=== PATIENT | male | born 1945 | race Caucasian/White ===

== ENCOUNTER 2022-09-04 13:49 | Outpatient (REF) | payer MEDICARE, SELFPAY ==
[2022-09-04 15:36] LABS: Blood Urea Nitrogen 17 mg/dL (9-16); Estimated Glomerular Filt Rate > 60
== END 2022-09-04 13:50 | disposition home or self-care (01) ==
LOC: HO.LAB 13:49
PROVIDERS: PCP Student in an Organized Health Care Education/Training Program; Visit Provider Psychiatry & Neurology Neurology
DX: I63.40 Cerebral infarction due to embolism of unspecified cerebral artery (principal); I65.29 Occlusion and stenosis of unspecified carotid artery
CPT/HCPCS: 36415; 82565; 84520

== ENCOUNTER 2023-04-17 15:33 | Outpatient (REF) | payer MEDICARE, SELFPAY ==
--- NOTE | ~2023-04-17 | US_ITS ---
EXAMINATION: US EXTRACRANIAL CAROTID DUPLEX, BILATERAL CLINICAL INFORMATION: CVA COMPARISON: None available. TECHNIQUE: Real-time ultrasound and Doppler techniques (integrating B-mode 2-D vascular images, Doppler spectral analysis and color-flow Doppler imaging) were utilized to interrogate the extracranial carotid arteries, the vertebral arteries and proximal subclavian arteries bilaterally. The degree of stenosis is determined by criteria similar to NASCET. FINDINGS: Right Side: 1. There is mild atherosclerotic plaque seen in the bifurcation/proximal ICA region. 2. The common carotid artery PSV proximally is 72 cm/s and distally 77 cm/s. 3. The proximal internal carotid artery velocities are 57 cm/s systolic and 23 cm/s diastolic. 4. The proximal external carotid artery PSV is 131 cm/s. 5. The vertebral artery shows antegrade flow. 6. The subclavian artery waveforms are normal. Left Side: 1. There is mild atherosclerotic plaque seen in the bifurcation/proximal ICA region. 2. The common carotid artery PSV proximally is 84 cm/s and distally 76 cm/s. 3. The proximal internal carotid artery velocities are 80 cm/s systolic and 37 cm/s diastolic. 4. The proximal external carotid artery PSV is 104 cm/s. 5. The vertebral artery shows antegrade flow. 6. The subclavian artery waveforms are normal. US/US carotid duplex BI IMPRESSION: 1. RIGHT: Minimal, non-hemodynamically significant stenosis of the proximal right internal carotid artery corresponding to a 0-49% stenosis by velocity criteria. 2. LEFT: Minimal, non-hemodynamically significant stenosis of the proximal left internal carotid artery corresponding to a 0-49% stenosis by velocity criteria.
== END 2023-04-17 15:34 | disposition home or self-care (01) ==
LOC: HO.US 15:33
PROVIDERS: PCP Student in an Organized Health Care Education/Training Program; Visit Provider Psychiatry & Neurology Neurology
DX: I63.40 Cerebral infarction due to embolism of unspecified cerebral artery (principal); I65.23 Occlusion and stenosis of bilateral carotid arteries
CPT/HCPCS: 93880

== ENCOUNTER 2024-07-26 12:49 | Outpatient (AMB) | payer MEDICARE, SELFPAY ==
--- NOTE | 2024-07-26 13:20 | A.OFFPC_ITS ---
Vital Signs 07/26/24 13:24 Height 5 ft 3.39 in Weight 173 lb 6 oz BMI 30.3 BP 126/72 Blood Pressure Location Rt brachial Position Sitting Respiration 14 Pulse 57 Pulse Source Pulse Oximeter Pulse Oximetry (%) 97 Oxygen Delivery Method Room Air Intake Visit Reasons: SANITARY ENGINEER/PE requested Allergies No Known Allergies Allergy (Verified 07/26/24 13:21) Tobacco use date assessed: 07/26/24 Fall risk assessment: No Falls in past year Last assessed Fall Risk: 07/26/24 Dental Screening Dental Screen Date: 07/26/24 Did you have a dental visit in the last 12 months?: Yes Did you have a dental problem in the last 6 months where you did not have access to dental care?: No Was dental information given to patient?: Patient has dentist HPI HPI Comments History of Present Illness Details The patient is a 79 year old male with a past medical history of CVA c left hemiparesis, hypertension, GERD/PUD, COPD pulm nodule, history of kidney stones presenting to [facility] care. Transferring from [facility] CV: On plavix, atorvastatin. Some memory loss. Taking herbal supplement. MSK: History of T12 wedge fracture. 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 Carotid thrombosis-right. Patient started on xarelto Colonoscopy noted due 2020. cologuard ordered today ROS CONSTITUTIONAL: Denies weight loss, fever and chills. HEENT: Denies changes in vision and hearing. RESPIRATORY: Denies SOB and cough. CV: Denies palpitations and CP GI: Denies abdominal pain, nausea, vomiting and diarrhea. : Denies dysuria and urinary frequency. MSK: Denies new myalgia and joint pain. SKIN: Denies rash and pruritus. NEUROLOGICAL: Denies headache PSYCHIATRIC: Denies recent changes in mood. PHYSICAL EXAM: GENERAL: Alert and oriented x 3. NAD EYES: EOMI. Anicteric. HENT: Moist mucous membranes. No scleral icterus. No cervical lymphadenopathy. LUNGS: Clear to auscultation bilaterally. CARDIOVASCULAR: Regular rate and rhythm. No murmur. No JVD. ABDOMEN: Soft, non-tender +bs EXTREMITIES: No edema. Non-tender. SKIN: No rashes or lesions. Warm. NEUROLOGIC: No focal neurological deficits. CN II-XII grossly intact PSYCHIATRIC: Cooperative. Appropriate mood and affect [facility] Surgical History H/O colonoscopy Hx laparoscopic cholecystectomy Family History Mother Diabetes Father Prostate cancer Stroke HTN (hypertension) Crohn disease Alcoholism Son Bicuspid aortic valve Other Substance abuse Social History Housing: House Patient Tobacco Use Status: Former Tobacco user Tobacco use type: Cigarette (10 cigarette a day) and Cigar (3-4 daily) Cigarette Packs Per Day: 0.5 Years Smoked: 60 e-Cigarette/Vaping Use: Never Used Second Hand Smoke Exposure: Yes (past) service: No Current occupational status: retired Cognitive needs: No Hearing needs: Yes (hearing aids both ears) Vision needs: Yes (reading glasses) Questionnaire PHQ-9 Over the last 2 weeks, how often have you been bothered by any of the following problems? 1. Little interest or pleasure in doing things: not at all 2. Feeling down, depressed, or hopeless: not at all 3. Trouble falling or staying asleep, or sleeping too much: not at all 4. Feeling tired or having little energy: several days 5. Poor appetite or overeating: not at all 6. Feeling bad about yourself - or that you are a failure or have let yourself or your family down: not at all 7. Trouble concentrating on things, such as reading the newspaper or watching television: not at all 8. Moving or speaking so slowly that other people could have noticed. Or the opposite - being so fidgety or restless that you have been moving around a lot more than usual: not at all 9. Thoughts that you would be better off or of hurting yourself in some way: not at all Total score: 1 Depression Screening Interpretation: Negative Depression Screening Done: Yes 64117 - PHQ-9 Billing: Yes Source: Developed by Drs. Jose Ramon Ramirez, Samra Mckeon, Daniel Tang and colleagues, with an educational mariana from [employer]. Thrive Questionnaire Date Thrive assessed: 07/26/24 I am a: Patient What is your living situation today?: I have a steady place to live Within the past 12 months, did the food you bought not last and you didn't have the money to get more?: Never true Within the past 12 months, did you worry whether your food would run out before you got money to buy more?: Never true Do you have trouble paying for medicines?: No Do you have trouble getting transportation to medical appointments?: No Do you have trouble paying your heating and electricity bill?: No Do you have trouble taking care of your child, family member or friend?: No Do you have trouble with day-to-day activities such as bathing, preparing meals, shopping, managing finances, etc.?: No Are you currently unemployed and looking for a job?: No Are you interested in more education?: No Please select the resources that you would like help with: None Currently or been in a relationship where the following occur: No concerns reported THRIVE Score: 0 AUDIT C Alcohol Use Questionnaire (AUDIT-C) 1. How often do you have a drink containing alcohol?: Never Total Score: 0 CHIKIS-7 AMB Questionnaire CHIKIS-7 Date CHIKIS - 7 assessed: 07/26/24 Feeling nervous, anxious, or on edge: 0 = Not at all Not being able to stop or control worryin = Several days Worrying too much about different things: 0 = Not at all Trouble relaxin = Not at all Being so restless that it is hard to sit still: 0 = Not at all Becoming easily annoyed or irritable: 1 = Several days Feeling afraid as if something awful might happen: 0 = Not at all Total CHIKIS-7 score (0-4 normal; 5-9 mild; 10-14 moderate; 15-21 severe): 2 Source: Developed by Drs. Jose Ramon Ramirez, Samra Mckeon, Daniel Tang and colleagues, with an educational mariana from [employer]. CHIKIS-7 Assessment Billing CHIKIS-7 Assessment Tool: CHIKIS-7 Assessment 29925 Physical exam (Primary Care) Vital Signs: Last Vital Signs Pulse 57 07/26/24 13:24 Resp 14 07/26/24 13:24 BP 126/72 07/26/24 13:24 Pulse Ox 97 07/26/24 13:24 Oxygen Delivery Method Room Air 07/26/24 13:24 BMI result Body Mass Index 30.3 Tobacco/Smoking Status: Tobacco use Status Tobacco use date assessed 07/26/24 07/26/24 13:26 Patient Tobacco Use Status Former Tobacco user 07/26/24 13:26 Tobacco use type Cigarette (10 cigarette a 07/26/24 13:26 day),Cigar (3-4 daily) e-Cigarette/Vaping Use Never Used 07/26/24 13:26 PHQ-9: PHQ-9 Score PHQ-9: Total score 1 07/26/24 13:46 Depression Screening Interpretation: Negative Thrive Assessment: Date of Thrive Assessment Date Thrive assessed 07/26/24 07/26/24 13:46 Currently or been in a relationship where the following occur: No concerns reported Coding Level of Care Code New Pt Level 4 (98939) Complex EM visit Add On G2211 Diagnoses Encounter to establish care Z76.89 History of CVA (cerebrovascular accident) Z86.73 Additional Codes CHIKIS-7 Assessment Billing - CHIKIS-7 Assessment Tool: CHIKIS-7 Assessment 52008 ([id number]) PHQ-9 - 01858 - PHQ-9 Billing: Yes ([id number]) Assessment & Plan Assessment & Plan (1) Encounter to establish care: Code(s): Z76.89 - Persons encountering health services in other specified circumstances Category: Medical (2) History of CVA (cerebrovascular accident): Code(s): Z86.73 - Personal history of transient ischemic attack (TIA), and cerebral infarction without residual deficits Category: Medical Plan 79 yo to establish care Past medical, surgical, social and family history reviewed Medications reconciled cologuard ordered Orders: Orders Complete Blood Count Auto Diff Today K21.9 - Gastro-esophageal reflux disease without esophagitis, Z12.11 - Encounter for screening for malignant neoplasm of colon, Z86.73 - Personal history of transient ischemic attack (TIA), and cerebral infarction without residual deficits Comprehensive Met. Panel Today K21.9 - Gastro-esophageal reflux disease without esophagitis, Z12.11 - Encounter for screening for malignant neoplasm of colon, Z86.73 - Personal history of transient ischemic attack (TIA), and cerebral infarction without residual deficits Lipid Panel Today K21.9 - Gastro-esophageal reflux disease without esophagitis, Z12.11 - Encounter for screening for malignant neoplasm of colon, Z86.73 - Pe rsonal history of transient ischemic attack (TIA), and cerebral infarction without residual deficits Prostate Specific Antigen Today K21.9 - Gastro-esophageal reflux disease without esophagitis, Z12.11 - Encounter for screening for malignant neoplasm of colon, Z86.73 - Personal history of transient ischemic attack (TIA), and cerebral infarction without residual deficits Referrals Cologuard Test Z12.11 - Encounter for screening for malignant neoplasm of colon, Z12.12 - Encounter for screening for malignant neoplasm of rectum Medications: New atorvastatin 80 mg PO DAILY 90 tabs 3RF
[2024-07-26 13:24] VITALS: BP 126/72; PULSE 57; RESP 14; O2SAT 97; BMI 30.3
--- OUTSIDE RECORDS SUMMARY | 2024-07-26 15:30 | XMS_ITS | Clinical Summary ---
Author Organization [facility] ity Address [address] [place] [address] Care Team Providers Care Arts [employer] Dean Name Role Phone Yanni Vanegas MD Primary Care Provider [phone] Allergies No known active allergies Medications CALCIUM CARBONATE-VITAM IN D3 ORAL Take by mouth. Acti ve multivitamin (MULTIPLE VITAMINS ORAL) Take by mouth. Active OMEGA-3 FATTY ACIDS-FISH OIL ORAL Take by mouth. Activ e psyllium (METAMUCIL) 3.4 gram packet Take 1 packet by mouth 2 (two) times a day. Active zinc sulfate (ZINC-15 ORAL) Take by mouth. Strength unknown Active albuterol HFA (PROAIR HFA ; PROVENTIL HFA ; VENTOLIN HFA) 90 mcg/actuation inhaler Inhale 2 puffs by mouth every 6 (six) hours if needed (Cough, Wheezing or Shortness of Breath). for up to 30 days. 4 Active atorvastatin (LIPITOR) 80 mg tablet Take 1 tablet (80 mg total) by mouth at bedtime. 4 Active clopidogreL (PLAVIX) 75 mg tablet Take 1 tablet (75 mg total) by mouth 1 (one) time each day. FOR 30 DAYS 3 Active famotidine (PEPCID) 40 mg tablet Take 1 tablet (40 mg total) by mouth 1 (one) time each day. 4 Active fluticasone (VERAMYST) 27.5 mcg/actuation nasal spray Administer 2 sprays into affected nostril(s) if needed. Active timolol (TIMOPTIC) 0.5 % ophthalmic solution 3 Active Active Problems Problem Noted Date Diagnosed Date Carotid thrombosis, right 07/23/2022 COVID-19 07/23/2022 GERD (gastroesophageal reflux disease) 3 HTN (hypertension) 07/23/2022 Left hemiparesis 07/23/2022 Left homonymous hemianopsia 07/23/2022 CVA (cerebral vascular accident) 05/26/2022 Overview (02/19/2024): Acute severe on 05/17/2022, right MCA stroke, left homonymous hemianopsia, left hemiparesis, carotid thrombosis right started patient on anticoagulation. Last Assessment & Plan: As I noted this patient did present with left-sided symptoms but was found to have multiple infarcts on the right frontal and parietal lobes. They did find a thrombus in the right internal carotid artery. It is not clear if this thrombus may have been from a ruptured plaque or not. Not clear if he may have paroxysmal atrial fibrillation causes. Was not clear if there is something within the left ventricle that can lead to this. Other possibilities to be if he had a plaque from the order although it is a noted look like a clot therefore do not think this is the case. I am can schedule for an echocardiogram. 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 I did tell him though if he ever had any exertional symptoms, I described to call. I did tell him if he had discomfort in his chest lasting for 15 to 20 minutes call 911. ED (erectile dysfunction) 10/28/2018 Warts 10/28/2018 Wedge fracture of thoracic vertebra 10/28/2018 Overview (02/19/2024): T 12. Moderate Cigar smoker 10/18/2018 Glaucoma 10/18/2018 Overview (02/19/2024): Dr Burger Pulmonary nodule 10/18/2018 Overview (02/19/2024): On xray - will need ct chest Elevated bilirubin 04/11/2016 Encounters Date Type Department Care Team Description 06/01/2024 Telephone Lung Screening Program - [address] [place] [address] Milvia Mckeon MA from Last 3 Months Immunizations Name Administration Dates Next Due Moderna SARS-CoV-2 COVID-19, mRNA, LNP-S, preservative free 04/04/2021,08/18/2020,07/21/2020 Pneumococcal conjugate 20 va lent (Prevnar 20, PCV 20) 2mo and older 04/06/2023 Td Tetanus diptheria (Tdvax) 7yo and older 04/06 Zoster Live 05/23/2023 Zoster recombinant (Shingrix ) 19yo and older 05/23/2023,02/11/2023 Surgical History Surgery Date Site/Laterality Comments CHOLECYSTECTOMY PROCEDURE: HISTORICAL CHOLECYSTECTOMY OTHER SURGICAL HISTORY PROCEDURE: ---- OTHER ----; COMMENT: exploratory laprotomy for PUD in 2002 and 2018 COLONOSCOPY 12/19/2004 PROCEDURE: HISTORICAL COLONOSCOPY; COMMENT: Dr Louise. Negative. 10 year repeat OTHER SURGICAL HISTORY PROCEDURE: CO GASTRIC RSTCV W/PRTL GASTRECTOMY 50-100 CM CHOLECYSTECTOMY PROCEDURE: CO LAPAROSCOPY SURG CHOLECYSTECTOMY Medical History Medical History Date Comments Glaucoma 10/18/2018 DX:Glaucoma; COM MENT: Dr Burger Cigar smoker 10/18/2018 DX:Cigar smoker Pulmonary nodule 10/18/2018 DX:Pulmonary no dule; COMMENT: On xray - will need ct chest Wedge fracture of thoracic v ertebra (CMS/HCC) 10/28/2018 DX:Wedge fracture of thoraci c vertebra (HCC); COMMENT: T 12. Moderate ED (erectile dysfunction) 10/28/2018 DX:ED (erectile dysfunction) History of kidney stones 10/28/2018 DX:Hist ory of kidney stones Warts 10/28/2018 DX:Warts Depressive disorder DX:Depressiv e disorder HTN (hypertension) 07/23/2022 DX:HTN (hyper tension) GERD (gastroesophageal reflu x disease) 07/23/2022 DX:GERD (gastroesophageal re flux disease) History of gastrectomy DX:Histor y of gastrectomy Family History Medical History Relation Name Comments Crohn's disease Daughter Hypertension Father stroke, liver a nd prostate cancer Other cancer Father Prostate cancer Father Stroke Father Diabetes Mother goiter Other: Heart Problem Son Bicuspi d Aortic valve, dissected aorta Relation Name Status Comments Daughter Alive Father Mother Son Alive Social History Tobacco Use Types Packs/Day Years Used Date Smoking Tobacco: Former Cigarettes Q uit: 10/02/2018 Smokeless Tobacco: Never Alcohol Use Standard Drinks/Week Comments Yes 0 (1 standard drink = 0.6 oz pur e alcohol) Sex and Gender Information Value Date Recorded Sex Assigned at Not on file Legal Sex Male 12:21 PM EST Gender Identity Not on file Sexual Orientation Not on file Obstetrics History Last Filed Vital Signs Vital Sign Reading Time Taken Comments Blood Pressure 146/84 12/04/2023 8:24 AM EDT Sit ting L Arm Pulse 57 12/04/2023 8:24 AM EDT Temperature - - Respiratory Rate - - Oxygen Saturation - - Inhaled Oxygen Concentration - - Weight 76.2 kg (168 lb) 12/04/2023 8:24 AM EDT Height 167.6 cm (5' 6 ) 12/04/2023 8:24 AM EDT Body Mass Index 27.12 12/04/2023 8:24 AM EDT Plan of Treatment Health Maintenance Due Date Last Done Comments RSV Immunization Patients 60+ Years Old (1 - 1-dose 75+ series) 2020 Colorectal Cancer Screening: Colonoscopy 04/07/2022 10/18/2015 Depression Screening 04/07/2022 Falls Risk Assessment 04/07/2022 Hepatitis C Screening 04/07/2022 Social Influencers of Health Screening 04/07/2022 Hypertension/CHF/CAD Annual BMP Blood Test 12/04/2023 12/03/2022 COVID-19 Vaccine ( season) 2024 04/29/2022, 04/04/2021, 08/18/2020, Additional history exists Influenza Vaccine (#1) 2024 Cholesterol Screening (Lipid Panel) 06/21/2026 06/21/2021 DTaP,Tdap,and Td Vaccines (2 - Td or Tdap) 04/06/2033 04/06/2023 Pneumococcal Vaccine: 50+ Years Completed 04/06/2023 Zoster Vaccines Completed 05/23/2023, 05/05, 02/11/2023 HIB Vaccines Aged Out No longer eligi ble based on patient's age to complete this topic HPV Vaccines Aged Out No longer eligi ble based on patient's age to complete this topic Hepatitis A Vaccines Aged Out No long er eligible based on patient's age to complete this topic Hepatitis B Vaccines Aged Out No long er eligible based on patient's age to complete this topic IPV Vaccines Aged Out No longer eligi ble based on patient's age to complete this topic MMR Vaccines Aged Out No longer eligi ble based on patient's age to complete this topic Meningococcal ACWY Vaccine Aged Out N o longer eligible based on patient's age to complete this topic Meningococcal B Vacine Aged Out No lo nger eligible based on patient's age to complete this topic RSV Immunization Patients Under 20 months Aged Out No longer eligible based on patient's age to complete this topic Varicella Vaccines Aged Out No longer eligible based on patient's age to complete this topic Procedures Procedure Name Priority Date/Time Associated Diagnosis Comments ANNUAL BMP BLOOD TEST Routine 12/03/2022 LIPID PANEL Routine 06/21/2021 COLONOSCOPY Routine 10/18/2015 from Last 3 Months or Most Recently Relevant to Health Maintenance Results * Annual BMP Blood Test (12/03/2022) Pathologist [facility] Annual BMP Blood Test Abstracted Historical Provider HEALTH MAINTENANCE Final Result * (ABNORMAL) Lipid panel (06/21/2021) [facility] LDL/HDL Ratio 5(A) 0 - 4 Triglycerides 200(A) 0 - 150 mg/dL Cholesterol 161 0 - 200 mg/dL HDL 36(A) >=40 mg/dL LDL Cholesterol 85 0 - 100 mg/dL Blood Venous blood specimen / Unknown Historical Provider LAB BLOOD ORDERABLES Patricia l Result * Colonoscopy (10/18/2015) Pathologist [facility] Colonoscopy No interpretation , abstracted Anatomical Region Laterality Modality Other Historical Provider HEALTH MAINTENANCE Final Result from Last 3 Months or Most Recently Relevant to Health Maintenance Advance Directives Documents on File Type Date Recorded Patient Manager Membership Expl anation Health Care Decision (hx) 06/30/2023 AD MOLINA DIRECTIVE Health Care Decision (hx) 06/30/2023 AD MOLINA DIRECTIVE Care Teams Arts [employer] Sciences Dean Relationship Specialty Start Date End Date Yanni Vanegas MD PCP - General 10/16/23
--- OUTSIDE RECORDS SUMMARY | 2024-07-26 15:30 | XMS_ITS | Clinical Summary ---
Author Organization [facility] Address [address] [place] [address] Care Team Providers Care Software Integration Developer Name Role Phone Lukas Solomon MD Primary Care Provider [phone] Allergies No known active allergies Medications Medication Sig Dispensed Refills Start Date End Date Status latanoprost (XALATAN) 0.005 % ophthalmic solution Place 1 drop into both eyes every night at bedtime. 0 03/26/2016 Active ranitidine (ZANTAC) 150 MG tablet Take 150 mg by mouth 2 (two) times a day. 0 04/09/2016 Active aspirin EC 81 MG tablet Take 81 mg by mouth daily. 0 Active Multiple Vitamin (MULTI VITAMIN MENS) tablet Take 1 tablet by mouth daily. 0 Active psyllium (METAMUCIL) 0.52 G capsule Take 2.08 g by mouth daily. 0 Active cholecalciferol (VITAMIN D3) 1000 UNITS tablet Take 1,000 Units by mouth daily. 0 Active Zinc 50 MG TABS Take 50 mg by mouth daily. 0 Active oxyCODONE (ROXICODONE) 5 MG immediate release tablet Take 1 tablet (5 mg total) by mouth every 4 (four) hours as needed. 22 tablet 0 04/12/2016 Active Active Problems Problem Noted Date Diagnosed Date Elevated bilirubin 04/11/2016 Choledocholithiasis 04/11/2016 Resolved Problems Problem Noted Date Diagnosed Date Resolved Date Biliary colic symptom 04/11/20162015 Family History Medical History Relation Name Comments Cancer Father Liver Hypertension Father Stroke Father Diabetes Mother Relation Name Status Comments Father Mother Social History Tobacco Use Types Packs/Day Years Used Date Smoking Tobacco: Former Cigarettes Q uit: 05/04/1979 Alcohol Use Standard Drinks/Week Comments Yes 0 (1 standard drink = 0.6 oz pur e alcohol) 2 drinks per year Sex and Gender Information Value Date Recorded Sex Assigned at Not on file Gender Identity Not on file Sexual Orientation Not on file Last Filed Vital Signs Vital Sign Reading Time Taken Comments Blood Pressure 154/102 04/12/2016 1:39 PM EST Pulse 85 04/12/2016 1:39 PM EST Temperature 37.5 ??C (99.5 ??F) 04/12/2016 1:39 PM ES T Respiratory Rate 18 04/12/2016 1:39 PM EST Oxygen Saturation 93% 04/12/2016 1:39 PM EST Inhaled Oxygen Concentration - - Weight 76.7 kg (169 lb) 04/12/2016 5:29 AM EST Height 167.6 cm (5' 6 ) 04/10/2016 6:52 PM EST Body Mass Index 27.28 04/10/2016 6:52 PM EST Plan of Treatment Health Maintenance Due Date Last Done Comments Hepatitis C Screening 1945 COVID-19 Vaccine (#1) 1945 Depression Screening 1957 Preventative Health Evaluation 1963 DTap / Tdap / Td (1 - Tdap) 1964 Shingrix-Zoster Vaccine (1 of 2) 1995 Fall Risk Assessment 2010 Pneumococcal Vaccine (1 of 1 - PCV) 2010 RSV Adult > 60+ Yrs or Pregn ant (1 - 1-dose 75+ series) 2020 Influenza Vaccine (#1) 2024 Hepatitis B Vaccines Aged Out No long er eligible based on patient's age to complete this topic RSV Ped < 20 months Aged Out No longe r eligible based on patient's age to complete this topic Advance Directives For more information, please contact: [phone] Latest Code Status on File Code Status Date Activated Date Inactivated Comments Full Code 04/10/2016 6:49 PM 04/12/2016 10:40 PM Thi s code status was ascertained in the following way: discussion with patient. Care Teams Software Integration Developer Relationship Specialty Start Date End Date Lukas Solomon MD [address] [place] [id number] PCP - General Family Medicine 04/10/16
== END 2024-07-26 14:20 | disposition home or self-care (01) ==
LOC: HO.HMCFM 12:50
PROVIDERS: PCP Internal Medicine; Visit Provider Internal Medicine
DX: Z76.89 Persons encountering health services in other specified circumstances (principal); Z86.73 Personal history of transient ischemic attack (TIA), and cerebral infarction without residual deficits

== ENCOUNTER → 2024-07-26 12:49 | Outpatient (BNVA) | payer MEDICARE, SELFPAY | PROVIDERS: PCP Internal Medicine; Visit Provider Internal Medicine | DX: I69.354 Hemiplegia and hemiparesis following cerebral infarction affecting left non-dominant side (principal); I10 Essential (primary) hypertension; K21.9 Gastro-esophageal reflux disease without esophagitis; J44.9 Chronic obstructive pulmonary disease, unspecified; Z87.442 Personal history of urinary calculi; Z76.89 Persons encountering health services in other specified circumstances; Z12.5 Encounter for screening for malignant neoplasm of prostate | CPT/HCPCS: 36415; 80053; 80061; 84153; 85025; 96127; 99202 ==

== ENCOUNTER 2024-07-26 14:28 | Outpatient (REF) | payer MEDICARE, SELFPAY ==
[2024-07-26 18:05] LABS: MANUAL DIFF FLAG NO
[2024-07-26 18:28] LABS: Alanine Aminotransferase 18 U/L (0-40); Alkaline Phosphatase 103 U/L (39-117); Anion Gap 9 (12-20); Aspartate Amino Transferase 73 U/L (5-37); Basophils Percent Auto 0.2 % (0-2); Blood Urea Nitrogen 16 mg/dL (9-16); Calcium 9.5 mg/dL (8.4-10.2); Carbon Dioxide 25 mmol/L (22-29); Chloride 111 mmol/L (96-108); Cholesterol 143 mg/dL (<200); Eosinophils Absolute Auto 0.2 X10*3/uL (0.0-0.4); Eosinophils Percent Auto 1.6 % (0-4); Estimated Glomerular Filt Rate > 60; Glucose Random 79 mg/dL (60-115); HDL Cholesterol 39 mg/dL (>40); Hematocrit 46.5 % (42.0-52.0); Hemoglobin 15.5 g/dl (14.0-18.0); Imm Gran Abs Auto 0.06 X10*3/uL (0.00-0.03); Imm Gran Pct Auto 0.6 % (0.0-0.4); LDL Cholesterol Calculated 56 mg/dL (<100); Mean Corpuscular HGB Conc 33.3 g/dl (31.0-36.0); Mean Corpuscular Hemoglobin 30.5 pg (27.0-33.0); Mean Corpuscular Volume 91.5 fL (80.0-98.0); Mean Platelet Volume 10.4 fL (9.4-12.4); Monocytes Percent Auto 10.2 % (2-11); Neutrophils Absolute Auto 6.3 x10*3/uL (2.0-8.3); Neutrophils Percent Auto 66.4 % (45-73); Platelet Count 295 X10*3/uL (160-400); Potassium 4.1 mmol/L (3.3-5.1); Red Blood Count 5.08 X10*6/uL (4.60-5.80); Red Cell Distribution Width 12.6 % (11.0-16.0); Sodium 141 mmol/L (135-145); Total Protein 6.9 g/dL (6.5-8.0); Triglycerides 242 mg/dL (<150); White Blood Count 9.5 X10*3/uL (4.8-10.8)
[2024-07-26 18:49] LABS: Prostate Specific Antigen 4.07 ng/mL (<0.05-4.0)
== END 2024-07-26 14:29 | disposition home or self-care (01) ==
LOC: HO.WFDLDS 14:28
PROVIDERS: Visit Provider Internal Medicine
DX: Z13.89 Encounter for screening for other disorder (principal)
CPT/HCPCS: 36415; 80053; 80061; 84153; 85025

== ENCOUNTER 2025-04-21 08:00 | Outpatient (REF) | payer MEDICARE, SELFPAY ==
[2025-04-21 11:11] LABS: Folate 11.3 ng/mL (> or = 4.0); Vitamin B12 1011 pg/mL (200-900)
== END 2025-04-21 08:01 | disposition home or self-care (01) ==
LOC: HO.LAB 08:00
PROVIDERS: PCP Internal Medicine; Visit Provider Registered Nurse
DX: G31.84 Mild cognitive impairment of uncertain or unknown etiology (principal); Z86.73 Personal history of transient ischemic attack (TIA), and cerebral infarction without residual deficits; Z79.899 Other long term (current) drug therapy
CPT/HCPCS: 36415; 82607; 82746; 84443; 99212

== ENCOUNTER 2025-04-21 08:00 | Outpatient (AMB) | payer MEDICARE, SELFPAY ==
--- OUTSIDE RECORDS SUMMARY | 2025-04-21 08:04 | XMS_ITS | Clinical Summary ---
Author Organization [facility] Prior to 10/01/[address] [place] [address] Care Team Providers Care Maintenance Mechanic Helper Name Role Phone Lukas Solomon MD Primary Care Provider [phone] Allergies No known active allergies Medications Medication [...] 85 04/12/2016 1:39 PM EST Temperature 37.5 C (99.5 F) 04/12/2016 1:39 PM EST Respiratory Rate 18 04/12/2016 1:39 PM EST Oxygen Saturation 93% 04/12/2016 1:39 PM EST Inhaled Oxygen Concentration - - Weight 76.7 kg (169 lb) 04/12/2016 5:29 AM EST Height 167.6 cm (5' 6 ) 04/10/2016 6:52 PM EST Body Mass Index 27.28 04/10/2016 6:52 PM EST Plan of Treatment Health Maintenance Due Date Last Done Comments COVID-19 Vaccine (#1) 1945 Depression Screening 1957 Preventative Health Evaluation 1963 DTap / Tdap / Td (1 - Tdap) 1964 Shingrix-Zoster Vaccine (1 of 2) 1995 Fall Risk Assessment 2010 Pneumococcal Vaccine (1 of 1 - PCV) 2010 RSV Adult > 60+ Yrs or Pregn ant (1 - 1-dose 75+ series) 2020 Influenza Vaccine (#1) 2025 Hepatitis B Vaccines Aged Out No long er eligible based on patient's age to complete this topic RSV Ped < 20 months Aged Out No longe r eligible based on patient's age to complete this topic Advance Directives For more information, please contact: [phone] Latest Code Status on File Code Status Date Activated Date Inactivated Comments Full Code 04/10/2016 6:49 PM 04/12/2016 10:40 PM Thi s code status was ascertained in the following way: discussion with patient. Care Teams Maintenance Mechanic Helper Relationship Specialty Start Date End Date Lukas Solomon MD [address] [place] [id number] PCP - General Family Medicine 04/10/16
--- OUTSIDE RECORDS SUMMARY | 2025-04-21 08:05 | XMS_ITS | Clinical Summary ---
Author Organization [facility] ity Address [address] [place] [address] Care Team Providers Care Cheesemaker Name Role Phone Yanni Vanegas MD Primary Care Provider [phone] Allergies No known active allergies Medications CALCIUM [...] will need ct chest Elevated bilirubin 04/11/2016 Immunizations Immunization Administration Dates Next Due Moderna SARS-CoV-2 COVID-19, [...] 10 year repeat OTHER SURGICAL HISTORY PROCEDURE: IN GASTRIC RSTCV W/PRTL GASTRECTOMY 50-100 CM CHOLECYSTECTOMY PROCEDURE: IN LAPAROSCOPY SURG CHOLECYSTECTOMY Medical History Medical History Date Comments Glaucoma 10/18/2018 DX:Glaucoma; COM MENT: Dr Burger Cigar smoker 10/18/2018 DX:Cigar smoker Pulmonary nodule 10/18/2018 DX:Pulmonary no dule; COMMENT: On xray - will need ct chest Wedge fracture of thoracic v ertebra (CMS/HCC V24, CMS/HCC V28) 10/28/2018 DX:Wedge fracture of thorac ic vertebra (HCC); COMMENT: T 12. Moderate ED [...] Years Used Date Smoking Tobacco: Former Cigarettes 0 Q uit: 10/02/2018 Smokeless Tobacco: Never Alcohol [...] Due Date Last Done Comments RSV Immunization Adult Patients (1 - 1-dose 75+ series) 2020 Colorectal Cancer Screening: Colonoscopy 10/17/2020 10/18/2015 Falls Risk Assessment 04/07/2022 Social Influencers of Health Screening 04/07/2022 Hypertension/CHF/CAD Annual BMP Blood Test 12/04/2023 12/03/2022 Depression Screening 05/04/2024 COVID-19 Vaccine ( season) 2025 04/29/2022, 04/04/2021, 08/18/2020, Additional history exists Influenza Vaccine (#1) 2025 Cholesterol Screening (Lipid Panel) 06/21/2026 06/21/2021 DTaP,Tdap,and [...] age to complete this topic Meningococcal B Vaccine Aged Out No l onger eligible based on patient's age to complete [...] Results * Annual BMP Blood Test (12/03/2022) Annual BMP Blood Test Abstracted [facility] Provider HEALTH MAINTENANCE Final Result * (ABNORMAL) Lipid panel (06/21/2021) Pathologist [facility] LDL/HDL Ratio 5(A) 0 - 4 Triglycerides 200(A) 0 - 150 mg/dL Cholesterol 161 0 - 200 mg/dL HDL 36(A) >=40 mg/dL LDL Cholesterol 85 0 - 100 mg/dL Blood Venous blood specimen / Unknown Historical Provider LAB BLOOD ORDERABLES Patricia l Result * Colonoscopy (10/18/2015) Colonoscopy No interpretation , abstracted Anatomical Region Laterality Modality Other Historical Provider HEALTH MAINTENANCE Final Result from Last 3 Months or Most Recently Relevant to Health Maintenance Advance Directives Documents on File Type Date Recorded Patient Liner Man Expl anation Health Care Decision (hx) 06/30/2023 AD MOLINA DIRECTIVE Health Care Decision (hx) 06/30/2023 AD MOLINA DIRECTIVE Care Teams Cheesemaker Relationship Specialty Start Date End Date Yanni Vanegas MD [facility] - General 10/16/23
--- NOTE | 2025-04-21 08:32 | MHC.OFFVIS ---
Intake Visit Reasons: follow up Accompanied by: Spouse Allergies No Known Allergies Allergy (Verified 04/21/25 08:36) Medication List - Last Reconciled 04/21/25 by Mary Orantes CNP atorvastatin 80 mg PO DAILY clopidogrel 75 mg PO DAILY 90 days multivitamin 1 tab PO DAILY timolol maleate 0.5% drps ophthalmic (eye) HPI Comments Details: 80-year-old man with past medical history of peptic ulcer disease and hypertension who was seen in [facility] in May of 2022 with slurred speech and left-sided weakness. 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 He returns after 23 months with new concern of forgetfulness. His of 58 years (together for 62) has noticed short-term memory issues have gotten worse over the last year. He has tried multiple supplements including [employer], and honey and cinnamon, but he was sometimes forgetting to take them. He says he remembers what is important. He keeps a calendar of appointments. No new stroke-like symptoms. His handwriting never fully came back after the stroke. Sleep was okay. 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 He enjoys reading and doing crossword puzzles. [facility] Medical History (Updated 04/21/25 @ 08:50 by Mary Orantes CNP) Cerebral microvascular disease Embolic cerebral infarction Surgical History H/O colonoscopy Hx laparoscopic cholecystectomy Family History Mother Diabetes Father Prostate cancer Stroke HTN (hypertension) Crohn disease Alcoholism Son Bicuspid aortic valve Other Substance abuse Social History Housing: House Patient Tobacco Use Status: Former Tobacco user Tobacco use type: Cigarette (10 cigarette a day) and Cigar (3-4 daily) Cigarette Packs Per Day: 0.5 Years Smoked: 60 e-Cigarette/Vaping Use: Never Used Second Hand Smoke Exposure: Yes (past) service: No Current occupational status: retired Cognitive needs: No Hearing needs: Yes (hearing aids both ears) Vision needs: Yes (reading glasses) Review of Systems Const Denies chills, Denies daytime sleepiness, Denies difficulty sleeping, Denies fatigue, Denies fever(s), Denies frequent falls, Denies headache(s), Denies increased appetite, Denies poor appetite, Denies snoring, Denies weakness, Denies weight gain and Denies weight loss Eyes Denies loss of vision ENT Denies vertigo, Denies dizziness and Denies headache(s) Card Denies chest pain at rest, Denies chest pain with activity, Denies syncope, Denies leg edema and Denies palpitations Resp Denies snoring GI Denies constipation, Denies heartburn, Denies diarrhea and Denies nausea Denies urinary frequency, Denies urinary incontinence and Denies urinary urgency Musc Denies abnormal gait, Denies numbness and Denies tingling Skin/Breast Denies dry skin and Denies rash Neuro Denies abnormal gait, Denies vertigo, Denies dizziness, Denies syncope, Denies frequent falls, Denies headache(s), Denies lack of coordination, Denies loss of vision, Reports memory loss, Denies numbness, Denies restless legs, Denies seizure-like activity, Denies tingling, Denies paresthesias, Denies tremor(s) and Denies weakness Psych Denies anxiety, Denies depression, Denies auditory hallucinations, Reports memory loss, Denies visual hallucinations and Denies suicidal ideation Endo Denies fatigue and Denies palpitations Physical Exam Const Other: General Appearance:? normal, in no acute distress. Skin:? no rashes, no significant birthmarks. Heart:? S1, S2 normal, no murmurs. Lungs:? clear anteriorly and posteriorly. Extremities:? no edema. Psych:? alert, oriented, cognitive function intact, cooperative with exam. Neuro Other: Mental Status:?Normal attention, orientation, memory and affect.?MMSE 27/30. Cranial Nerves:?Pupils are equal, round and reactive to light. External occular muscles are intact. Visual kay are full. Face is symmetrical. Facial sensations are normal. Tongue is midline. Palate elevates symmetrically. Shoulder shrugging is normal. Hearing to bedside conversation is normal. Sensory Exam:?....? Coordination:?No ataxia,?no titubation.? Gait Exam: Within normal limits. Cerebellar Signs:?[id number] is okay. Extrapyramidal System:?No tremor, rigidity with normal facial expressions.? Pronator Drift:?Not present.? Involuntary Movements:?No tremors seen.? Speech:?Normal.? Results Reviewed Results Reviewed: US Carotid Duplex at [facility] in Apr 2023: RIGHT: Minimal, non-hemodynamically significant stenosis of the proximal right internal carotid artery corresponding to a 0-49% stenosis by velocity criteria. LEFT: Minimal, non-hemodynamically significant stenosis of the proximal left internal carotid artery corresponding to a 0-49% stenosis by velocity criteria. CTA brain and neck at [facility] in September 2022: thrombus is resolved, otherwise ok, mild to mod diff atrophy, MVD CT brain WO at [facility] in May 2022: mild diff atrophy, mild mVD MRI brain WO at [facility] in May 2022: patchy R parietal embolic looking infarct, mod atrophy CTA brain and neck at [facility] in May 2022: thrombus in R distal ICA. 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 Continue clopidogrel 75mg 1 tablet daily. (2) MCI (mild cognitive impairment): Code(s): G31.84 - Mild cognitive impairment of uncertain or unknown etiology Category: Medical Plan: Start donepezil 5mg 1 tablet at bedtime, use/side effects reviewed. Reviewed labs ordered. Stay physically and socially active. Follow up in 3 months or sooner as needed. (3) Cerebral microvascular disease: Code(s): I67.89 - Other cerebrovascular disease Category: Medical Plan . Orders: Orders Vitamin B12 and Folate Today G31.84 - Mild cognitive impairment of uncertain or unknown etiology TSH reflex Free T4 Today G31.84 - Mild cognitive impairment of uncertain or unknown etiology Medications: New donepezil 5 mg PO BEDTIME 30 tabs 2RF 30 days Coding Level of Care Code Est Pt Level 4 (81859) Diagnoses History of embolic stroke Z86.73 MCI (mild cognitive impairment) G31.84 Cerebral microvascular disease I67.89
== END 2025-04-21 09:00 | disposition home or self-care (01) ==
LOC: HO.HSM 08:01
PROVIDERS: PCP Internal Medicine; Visit Provider Registered Nurse
DX: I67.89 Other cerebrovascular disease (principal); Z86.73 Personal history of transient ischemic attack (TIA), and cerebral infarction without residual deficits; G31.84 Mild cognitive impairment of uncertain or unknown etiology
CPT/HCPCS: 99214